=== PATIENT | female | born 1945 | race Caucasian/White ===

== ENCOUNTER → 2016-12-20 | Outpatient (CLI) | payer MEDICARE, OTHER ==
[~2016-12-20] MED LIST: /BENA20TA OR; /WARF25TA OR; ACET65TA OR; AMLO5TAB OR; ASPI81TA83 OR; COZA100T OR; FERR325T OR; GLIP2.5T20 OR; LASI40TA OR; LIPI20TA OR; LOPR50TA OR; MULTIVIT OR; NEXI20CA OR; OXYC10TA97 OR; Oscal OR; PERC5TAB8 OR; PERC7.5T8 OR; PREG25CA OR; SING10TA31 OR; VITA500T OR; januvia OR; lumigan OU; oscal OR; reclast IV; vitamin D OR
--- NOTE | 2016-12-20 11:16 | REPMRS ---
Patient History The patient states she had a clinical breast exam in October 2016.Patient is postmenopausal and is nulliparous. Family history of breast cancer in mother at age 72 and colorectal cancer in maternal uncle. Taking unspecified hormones for 1 year. Digital Mammo Screening Bilat: December 20, 2016 - Exam #: [id number] Bilateral CC and MLO view(s) were taken. Technologist: Linda Ledesma, Technologist Prior study comparison: December 20, 2015, bilateral digital mammo screening bilat performed at [facility]. December 16, 2014, bilateral digital mammo screening bilat performed at [facility]. FINDINGS: There are scattered fibroglandular densities. There has been no change in the appearance of the mammogram from the prior studies. There is a mild amount of residual fibroglandular tissue which is fairly symmetric. There is no interval development of dominant mass, architectural distortion, or clustered microcalcification suggestive of malignancy. ASSESSMENT: BI-RADS/ACR category 1 mammogram. Negative. Recommendation Routine screening mammogram in 1 year (for women over age 40). This mammogram was interpreted with the aid of an FDA-approved computer-aided dectection system. Electronically Signed By: Gaetano Phan MD 12/20/16 [id number]
== END ==
LOC: M RAD 10:13
PROVIDERS: ATTEND Family Medicine
DX: Z12.31 Encounter for screening mammogram for malignant neoplasm of breast (principal)

== ENCOUNTER → 2017-11-08 | Outpatient (CLI) | payer MEDICARE, OTHER | LOC: M RAD 18:16 | DX: D25.9 Leiomyoma of uterus, unspecified (principal) | CPT/HCPCS: 76856 ==

== ENCOUNTER → 2017-12-23 | Outpatient (CLI) | payer MEDICARE, OTHER | LOC: M RAD 09:59 | DX: Z12.31 Encounter for screening mammogram for malignant neoplasm of breast (principal) | CPT/HCPCS: 77067 ==

== ENCOUNTER → 2018-12-30 | Outpatient (CLI) | payer MEDICARE, OTHER ==
[~2018-12-30] MED LIST changes: -/WARF25TA OR; +COUM1TAB18 OR
--- NOTE | 2018-12-30 12:21 | REPMRS ---
Patient History The patient states she had a clinical breast exam in October 2018. Family history of breast cancer at age 72 in mother, colorectal cancer in maternal uncle. Taking unspecified hormones for 1 year. Digital Mammo Screening Bilat: December 30, 2018 - Exam #: [id number] Bilateral CC and MLO view(s) were taken. Technologist: Wendy Tellez, Technologist Prior study comparison: December 23, 2017, bilateral digital mammo screening bilat performed at [facility]. December 20, 2016, bilateral digital mammo screening bilat performed at [facility]. December 20, 2015, bilateral digital mammo screening bilat performed at [facility]. FINDINGS: There are scattered fibroglandular densities. There has been no change in the appearance of the mammogram from the prior studies. There is a mild amount of scattered fibroglandular density which is fairly symmetric. There is no interval development of dominant mass, architectural distortion, or clustered microcalcification suggestive of malignancy. 3-D tomosynthesis shows no additional findings. Assessment: BI-RADS/ACR category 1 mammogram. Negative Mammogram. Recommendation Routine screening mammogram of both breasts in 1 year (for women over age 40). This patient's Lifetime Breast Cancer RIsk is estimated at 10.5 %. This mammogram was interpreted with the aid of an FDA-approved computer-aided dectection system. Electronically Signed By: Curt Gamez MD 12/30/18 [id number]
== END ==
LOC: M RAD 10:39
PROVIDERS: ATTEND Family Medicine
DX: Z12.31 Encounter for screening mammogram for malignant neoplasm of breast (principal)

== ENCOUNTER → 2020-02-05 | Outpatient (CLI) | payer MEDICARE, OTHER ==
--- NOTE | 2020-02-05 14:16 | REPMRS ---
Patient History The patient states she has not had a clinical breast exam in over a year. Family history of breast cancer at age 72 in mother, colorectal cancer in maternal uncle. Taking unspecified hormones for 1 year. 3D TOMOSYNTHESIS WAS PERFORMED. [facility] for [facility] cancer [facility] 8.9%. VOLPARA DENSITY B. Digital Woman Screen Mammo: February 05, 2020 - Exam #: [id number] Bilateral CC and MLO view(s) were taken. Technologist: Cuca Petty Technologist Prior study comparison: December 30, 2018, bilateral digital mammo screening bilat, performed at [facility]. December 23, 2017, bilateral digital mammo screening bilat, performed at [facility]. FINDINGS: There are scattered fibroglandular densities. There has been no change in the appearance of the mammogram from the prior studies. There is a mild amount of residual fibroglandular tissue which is fairly symmetric. There is no interval development of dominant mass, architectural distortion, or clustered microcalcification suggestive of malignancy. Assessment: BI-RADS/ACR category 1 mammogram. Negative Mammogram. Recommendation Routine screening mammogram in 1 year (for women over age 40). This mammogram was interpreted with the aid of an FDA-approved computer-aided dectection system. Electronically Signed By: Gaetano Phan MD 02/05/20 [id number]
== END ==
LOC: M WHC 12:52
PROVIDERS: ATTEND Family Medicine
DX: Z12.31 Encounter for screening mammogram for malignant neoplasm of breast (principal); Z80.3 Family history of malignant neoplasm of breast

== ENCOUNTER → 2020-09-09 | Outpatient (CLI) | payer MEDICARE, OTHER ==
--- NOTE | 2020-09-09 14:31 | REP ---
INDICATION: HYPERPARATHYROIDISM W/ HYPERCALCEMIA. COMPARISON: None. TECHNIQUE: 27.2 mCi of technetium 99 M sestamibi is injected. 15 minutes delay and 3 hour delayed planar images are acquired of the neck and chest. A tomographic SPECT acquisition is acquired and the multiplanar re-formation images are reviewed along with rotational SPECT images. FINDINGS: Initial 15 minutes post injection images show show expected salivary gland uptake. Normal homogeneous thyroid gland uptake is seen. Delayed scan images demonstrate washout from the thyroid bed. Planar and SPECT images show no persistent uptake in the head and neck soft tissues or in the thorax to suggest a parathyroid adenoma. IMPRESSION: Negative sestamibi PET scintigraphy. <Electronically signed by Curt Gamez > 09/09/20 [id number]
== END ==
LOC: M RAD 09:48
PROVIDERS: ATTEND Nurse Practitioner Family
DX: E21.3 Hyperparathyroidism, unspecified (principal)
CPT/HCPCS: 78070; 78803; A9500

== ENCOUNTER → 2021-02-17 | Outpatient (CLI) | payer MEDICARE, OTHER ==
--- NOTE | 2021-02-17 13:11 | REPMRS ---
Patient History The patient states she has not had a clinical breast exam in over a year. Patient is postmenopausal and is nulliparous. Family history of breast cancer at age 72 in mother, colorectal cancer in maternal uncle. Took unspecified hormones for 1 year. Patient states no breast complaints today. Patient has signed MRS History Sheet. Digital Woman Screen Mammo: February 17, 2021 - Exam #: [id number] Bilateral CC and MLO view(s) were taken. Technologist: Gemma Man, Technologist Prior study comparison: February 05, 2020, bilateral digital woman screen mammo performed at [facility]. December 30, 2018, bilateral digital mammo screening bilat, performed at [facility]. FINDINGS: There are scattered fibroglandular densities. Screening. Digital screening (2D) mammography was performed bilaterally in the CC and MLO projections. Additionally, breast tomosynthesis (3D mammography) was performed bilaterally in the CC and MLO projections. Todays exam was compared to the prior exam/exams. By history, the patient has no complaints of a palpable breast abnormality or other significant breast complaints. The breasts are unchanged in size and shape. There are no megha-soft tissue densities or spiculated masses. There is no internal architectural distortion. There are no suspicious megha-calcific clusters. Skin thickening or nipple retraction is not present. IMPRESSION: BI-RADS Category 2- Benign Findings. There is no evidence of malignant alteration of the breasts. Followup examination recommended in one year. The Volpara volumetric breast density category is B, there are scattered areas of fibroglandular densities. This mammogram was read with the assistance of [employer],an FDA approved computer aided detection system for mammography. The lifetime Tyrer-Cuzick score is 8 % Negative x-ray reports should not delay surgical consultation if a dominant or clinically suspicious mass is present. Not all breast cancers can be identified by mammography. Therefore, we recommend that you continue to perform regular breast self-examination and physical examination and then promptly contact your physician of any concerns or changes. Adenosis and dense breasts may obscure an underlying neoplasm. Assessment: BI-RADS/ACR category 2 mammogram. Benign Findings. Recommendation Routine screening mammogram of both breasts in 1 year. Electronically Signed By: Dl Castro DO 02/17/21 [id number]
== END ==
LOC: M WHC 11:22
PROVIDERS: ATTEND Family Medicine
DX: Z12.31 Encounter for screening mammogram for malignant neoplasm of breast (principal)

== ENCOUNTER → 2021-05-02 | Outpatient (REF) | payer MEDICARE, OTHER | LOC: M LAB REF 14:31 | PROVIDERS: ATTEND Physician Assistant | DX: D04.39 Carcinoma in situ of skin of other parts of face (principal) | CPT/HCPCS: 11102; 88305; G0463 ==

== ENCOUNTER → 2021-07-26 | Outpatient (REF) | payer MEDICARE, OTHER | LOC: M LAB REF 13:19 | PROVIDERS: ATTEND Nurse Practitioner Family | DX: E83.42 Hypomagnesemia (principal) ==

== ENCOUNTER → 2022-03-14 | Outpatient (CLI) | payer MEDICARE, OTHER | LOC: M WHC 14:48 | PROVIDERS: ATTEND Family Medicine | DX: Z12.31 Encounter for screening mammogram for malignant neoplasm of breast (principal) ==

== ENCOUNTER → 2023-03-15 | Outpatient (CLI) | payer MEDICARE, OTHER | LOC: M WHC 10:35 | PROVIDERS: ATTEND Family Medicine | DX: Z12.31 Encounter for screening mammogram for malignant neoplasm of breast (principal) ==

== ENCOUNTER → 2023-09-23 | Outpatient (CLI) | payer MEDICARE, OTHER | LOC: M WHC 09:55 | PROVIDERS: ATTEND Family Medicine | DX: Z13.820 Encounter for screening for osteoporosis (principal); M85.851 Other specified disorders of bone density and structure, right thigh; M85.852 Other specified disorders of bone density and structure, left thigh ==

== ENCOUNTER → 2024-03-18 | Outpatient (CLI) | payer MEDICARE, OTHER | LOC: M WHC 10:05 | PROVIDERS: ATTEND Family Medicine | DX: Z12.31 Encounter for screening mammogram for malignant neoplasm of breast (principal) ==